=== PATIENT | male | born 1930 | race Caucasian/White ===

== ENCOUNTER → 2016-12-14 | Outpatient (CLI) | payer OTHER ==
[~2016-12-14] VITALS: Ht 185.4 cm; Wt 91.2 kg
[~2016-12-14] MED LIST: ACETAMINOPHEN325 M1 PO; ADULT LOW DOSE81 MG PO; ARMOUR THYROID60 M1 PO; DOXYCYCLINE 10100 MG PO; HYDROCHLOROTH12.5 MG PO; K-DUR 20 MEQ T20 MEQ PO; LEVOTHYROXIN0.075 MG PO; LIPITOR10 MG PO; LISINOPRIL20 MG PO; MELOXICAM7.5 MG PO; MOBIC7.5 MG PO; NEURONTIN 300300 M1 PO; NORVASC2.5 MG PO; OMEGA 3-6-9 CO1 EACH PO; ONE DAILY HEAL1 EACH PO; OXYBUTYNIN 5 MG5 M1 PO; PERCOCET PO; SIMVASTATIN40 MG PO; TRAMADOL 50 MG50 MG PO; XALATAN2.5 M1 OP; ZANTAC 7575 MG PO
--- NOTE | ~2016-12-14 | P ---
[facility] [place] [address] PROCEDURE REPORT Name: KRISTI CHE Room #: [facility] [id number] Admission: 12/14/16 Attend Phys: Nilton Gross DO Discharge: Date of : 32 Report #: [id number] THIS REPORT FOR: //name// CC: Marcin Gross DATE OF SERVICE: 12/14/2016 DESCRIPTION OF PROCEDURE: L5-S1 interlaminar epidural steroid injection under fluoroscopic guidance. This is the first procedure of the first series that the patient is undergoing. After obtaining written consent, the patient was taken back to the fluoroscopy suite, placed in a prone position with pillow under the abdomen to decrease lumbar lordosis. The skin overlying the lumbosacral area was then prepped and draped in aseptic fashion. The L5-S1 vertebral interspace was then identified by AP fluoroscopy. The skin and subcutaneous tissue overlying the target site of injection was anesthetized with 3 mL 1% lidocaine. A 20-guage 3.5 inch Tuohy needle was then advanced under fluoroscopic guidance towards the epidural space using a midline approach. The epidural space was identified using loss of resistance to air technique. After negative aspiration for heme or cerebrospinal fluid, a total of 1 mL of Omnipaque was injected. A lumbar epidurogram was confirmed using both AP and lateral fluoroscopy. After negative aspiration for heme or cerebrospinal fluid, 5 mL of a solution containing 2 mL 40 mg per mL, 80 mg total triamcinolone, 3 mL lidocaine 1% was injected in increments. Contrast spread was noted posterior epidural space. The needle was then retracted approximately half way and needle tract flushed with 1 mL of 1% lidocaine. Needle was then removed. There were no apparent sensory or motor deficits in the lower extremity following the procedure. A sterile bandage was placed over the injection site. The heart rate, pulse, oximetry and blood pressure were continuously monitored after the procedure. There were no apparent complications. The patient tolerated the procedure well and was carefully escorted to the recovery room in stable condition. There were no apparent complications. After meeting discharge criteria, the patient was then discharged home. <ELECTRONICALLY SIGNED> By: Nilton Gross DO 12/20/16 0805 [id number] Nilton Gross DO /nt
--- NOTE | ~2016-12-14 | HPC ---
[facility] [place] [address] PAIN MANAGEMENT CONSULTATION Name: KRISTI CHE Room #: REG [facility]ITAL[facility]ftali.#: [id number] Admission: 12/14/16 Attend Phys: Nilton Gross DO Discharge: Date of : 32 Report #: [id number] THIS REPORT FOR: //name// CC: Marcin Gross DATE OF SERVICE: 12/14/2016 REFERRING PHYSICIAN: Dr. Glass. CHIEF COMPLAINT: Bilateral foot pain. HISTORY OF PRESENT ILLNESS: As you know, the patient is an 86-year-old male who has been referred to our service for bilateral foot pain. The patient indicates pain began on 06/02/2016. He denies low back pain, lower extremity pain except for the bases of the feet. He has been evaluated by various physicians, the most recent was orthopedics who indicated there is a possibility the patient is suffering from atypical lumbar radiculopathy secondary to moderate spinal stenosis. He has been referred to our clinic to trial an epidural injection to determine if his bilateral foot pain can be improved with this type of procedure. He indicates today pain is continuous, steady and rhythmic, describes the pain as burning, throbbing and tender, places current pain score 7/10, daily average is 7/10, worst pain has been 9/10. The patient states that standing and walking exacerbates symptoms, elevation of his legs improves pain. He is yet to undergo any vascular studies or EMG of the lower extremities to further evaluate. Only imaging has been completed and it did show some moderate stenosis of the lumbar spine and there was concern his symptoms may be related to this. PAST MEDICAL HISTORY: 1. History of bleeding stomach ulcers. 2. Degenerative joint disease. 3. Osteoarthritis. 4. Prostate cancer, status post prostatectomy. 5. Seasonal allergies. 6. Dyslipidemia. 7. Hypothyroidism. PAST SURGICAL HISTORY: 1. Prostatectomy. 2. Left foot surgery. 3. Right foot surgery. SOCIAL HISTORY: The patient denies tobacco, alcohol, IV or illicit drug use. 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 He is [facility] [address] [place] [address] PAIN MANAGEMENT CONSULTATION Name: CHEKRISTIAILEEN SO Room #: REG [facility]#: [id number] Admission: 12/14/16 Attend Phys: Nilton Gross DO Discharge: Date of : 32 Report #: [id number] denying any workmen's compensation or litigation in regards to pain. REVIEW OF SYSTEMS: Positive for wearing corrective eyewear, cataracts, weakness, frequent urination, nocturia, incontinence and dribbling to urine, sexual difficulty, bilateral foot numbness and tingling, tremors, bleeding and bruising tendencies, dyslipidemia, hypertension, peptic ulcer disease. All other review of systems negative per 12-point review of systems other than those listed in history of present illness. Pain impact score 28/70 indicating moderate interference of daily activities secondary to pain. ALLERGIES: SULFA. CURRENT MEDICATIONS: Hydrochlorothiazide 12.5 mg once a day, oxybutynin 5 mg twice a day, Zantac 75 mg twice a day, multivitamin 1 tab per day, Norvasc 2.5 mg once a day, atorvastatin 10 mg per day, latanoprost one drop each eye per day, levothyroxine 16 mcg per day. IMAGING: MRI of the lumbar spine obtained on 11/26/2016 shows L1-L2 unremarkable. L2-L3 anterior and lateral disk bulge, mild facet arthropathy, no significant neural foraminal stenosis or central canal stenosis. L3-L4, no central canal stenosis, [id number] foraminal stenosis bilaterally. L5-S1 anterolisthesis L4 on L5, marked facet arthropathy, small joint effusions, ligamentous flavum hypertrophy, thecal sac is measuring 1 cm, mild central canal stenosis. L5-S1, marked facet arthropathy, joint effusions, neural foraminal stenosis is not noted, thecal sac measures 1.1, mild spinal stenosis. PHYSICAL EXAMINATION: VITAL SIGNS: Blood pressure 145/93, pulse 74, respiratory rate 18, unlabored. The patient is 98% on room air. Height 6 feet 1 inch tall, weight 201 pounds, BMI calculated 26.5. GENERAL: Well-developed, well-nourished, well-hydrated 86-year-old male appearing his stated age. Pain is rated at 7/10. HEENT: Normocephalic, atraumatic. Pupils equal, round, reactive to light. Extraocular muscles are intact. Sclerae nonicteric without injection. NEUROLOGIC: Cranial nerves 2-12 grossly intact. Speech is fluent. LUNGS: Clear, no wheeze, rhonchi or rales. CARDIOVASCULAR: Regular. No appreciable gallop or rub. ABDOMEN: Soft, nontender, nondistended, normoactive bowel sounds. EXTREMITIES: Show no clubbing, no cyanosis, no edema. MUSCULOSKELETAL: Lower extremity strength appears equal and symmetrical 5/5, intact to light touch from L1 through S2 dermatomes. There are changes in the tactile sensation along the plantar surface of the foot when compared to dorsum. Sensation could be due to skin thickness. There are no changes in skin color or texture, no growth changes of the nails or hair. The patient does have a [address] [place] [address] PAIN MANAGEMENT CONSULTATION Name: KRISTI CHE Room #: REG [facility]#: [id number] Admission: 12/14/16 Attend Phys: Nilton Gross DO Discharge: Date of : 32 Report #: [id number] slightly antalgic gait, but is able to stand without complication. Pain is generated with standing from seated position. Seated straight leg raising negative. Supine straight leg raising negative. Nick's test negative. Modified Gaenslen's positive for some axial low back pain. ASSESSMENT: 1. Peripheral neuropathy. 2. Bilateral foot pain. 3. Concern of mild spinal stenosis. 4. 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 5. Lumbosacral spondylosis with possible radiculopathy. 6. Intractable pain. PLAN: Based on today's physical exam, history the patient has provided, the distribution of symptoms and the fact that he is only experiencing bilateral plantar foot pain, I am not convinced that this is a spinal stenosis issue. The stenosis the patient has at L4-L5 and L5-S1 is surprisingly mild, the canal is only measuring 1 cm at its tightest spot and this is at the L4-L5 level, which is significantly more open than we typically see in 86-year-old patients. I am not at all concerned about the stenosis in this area. The neural foraminal stenosis that is noted does not correlate to the patient's current pain distribution and I do not feel is contributing significantly. The patient has been requested to undergo an epidural injection to determine if his bilateral foot pain will be improved with this. I have advised the patient that I would look for options other than the epidural injection if it is ineffective. I would recommend further workup with EMG and a possible study for peripheral arterial disease. The sources of peripheral neuropathic pain are varied, I do not feel that his stenosis is the source, but we will try to answer the referring physicians question about whether or not there is a possible component. He was referred to us by his neurology team, Dr. Tad Gilbert, for this epidural injection. We have consented the patient to undergo the procedure in hopes of improving pain, but I have advised the patient that we are not supremely confident that this is the source of the patient's current symptoms. He states he understands, but does wish to answer Dr. Gilbert's question before moving forward with more aggressive evaluation. The patient was advised risks and benefits of a lumbar epidural injection. These risks include but are not necessarily limited to bleeding, bruising, infection, worsening pain, no relief of pain, also risk of temporary or permanent muscle weakness, temporary or permanent nerve damage, possible paralysis and . The patient states understood and wished to proceed. 1. No medication changes were made at today's visit. The patient to continue current medical therapy as previously prescribed. 2. The patient to return to our clinic on an as-needed basis for possible repeat epidural injection, assuming he gets good and prolonged efficacy. Otherwise, he will follow up with his neurology team with Dr. Gilbert. [address] [address] PAIN MANAGEMENT CONSULTATION Name: KRISTI CHE SARAY Room #: REG [facility] [id number] Admission: 12/14/16 Attend Phys: Nilton Gross DO Discharge: Date of : 32 Report #: [id number] 3. We wish to thank Dr. Gilbert for the referral of this patient to our clinic. We will keep you apprised of response to treatment, as we see him for his peripheral neuropathic pain. <ELECTRONICALLY SIGNED> By: Nilton Gross DO 12/20/16 0805 [id number] 1324 Nilton Gross DO /nt
[2016-12-14 12:57] VITALS: BP 145/93
== END ==
LOC: PAIN 07:16
DX: M47.817 Spondylosis without myelopathy or radiculopathy, lumbosacral region (principal); M51.26 Other intervertebral disc displacement, lumbar region; G62.89 Other specified polyneuropathies; M19.90 Unspecified osteoarthritis, unspecified site; E78.4 Other hyperlipidemia; E03.8 Other specified hypothyroidism; Z90.79 Acquired absence of other genital organ(s); Z88.8 Allergy status to other drugs, medicaments and biological substances; H40.89 Other specified glaucoma

== ENCOUNTER → 2016-12-21 | Outpatient (CLI) | payer OTHER ==
[~2016-12-21] VITALS: Ht 185.4 cm; Wt 97.7 kg
--- NOTE | ~2016-12-21 | HPC ---
[facility] [place] [address] PAIN MANAGEMENT CONSULTATION Name: KRISTI CHE Room #: REG [facility]#: [id number] Admission: 12/21/16 Attend Phys: Nilton Gross DO Discharge: Date of : 32 Report #: [id number] THIS REPORT FOR: //name// CC: Devonte Gross DATE OF SERVICE: 12/21/2016 REFERRING PHYSICIAN: Devonte Glass M.D. CHIEF COMPLAINT: Bilateral foot pain, right greater than left. HISTORY OF PRESENT ILLNESS: As you know, the patient is a very pleasant 86-year-old male who returns today in followup visit indicating burning, throbbing, aching and tender sensations in his bilateral feet. This started in June 2016 after having "major foot surgery." He indicates his pain level of 7/10, states his pain is exacerbated with standing and walking and improves with sitting and rest. He returns today in followup visit indicating that medications are not providing much in the way of benefit despite the fact that we started the patient on tramadol and meloxicam for baseline pain control. He returns today to discuss other treatment options. ALLERGIES: SULFA. CURRENT MEDICATIONS: [place] Thyroid 60 mg per day, latanoprost one drop each eye per day, atorvastatin 10 mg per day, amlodipine 2.5 mg once a day, multivitamin 1 tab per day, ranitidine 75 mg twice a day, oxybutynin 5 mg twice a day and hydrochlorothiazide 12.5 mg once a day. SOCIAL HISTORY: The patient denies tobacco, alcohol or IV or illicit drug use. He is retired, retired years ago, unaccompanied. REVIEW OF SYSTEMS: Positive for bilateral foot pain, right ankle pain. All other review of systems negative per 12-point review of systems. IMAGING DATA: No new imaging available. PHYSICAL EXAMINATION: VITAL SIGNS: Blood pressure 160/80, pulse is 53 and respiratory rate 16 and unlabored. The patient is 100% on room air, height 6 feet 1 inch tall, weight 215.4 pounds and BMI calculated 28.4. GENERAL: Well developed, well nourished, well hydrated 86-year-old male appearing his stated age. Pain is rated around 7/10. HEENT: Normocephalic and atraumatic. Pupils equal, round and reactive to light. Extraocular muscles are intact. Sclerae nonicteric, without injection. [facility] [address] [place] [address] PAIN MANAGEMENT CONSULTATION Name: KRISTI CHE Room #: REG [facility]#: [id number] Admission: 12/21/16 Attend Phys: Nilton Gross DO Discharge: Date of : 32 Report #: [id number] EXTREMITIES: Show no clubbing, no cyanosis and no edema. MUSCULOSKELETAL: Lower extremity strength appears equal and symmetrical 5/5. There is no tenderness to palpation over the ankle today and ligamentous structures are normal. There is no erythema, no edema and no changes in skin color or texture. Normal temperatures when comparing left lower extremity to right. Weightbearing does not appear to exacerbate symptoms. Full range of motion of the ankle. No crepitus noted. ASSESSMENT: 1. Bilateral peripheral neuropathy of the feet. 2. Right foot pain. 3. Chronic intractable pain. PLAN: 1. The patient returns today in followup visit where he is now describing bilateral foot pain and burning in sensation. This appears to be a peripheral neuropathic problem. He correlates this to surgical issues. Though I am unable to determine a source of the symptomology, there is a differential that includes peripheral neuropathic pain of unknown origin, possibility of bilateral CRPS, which would be extremely rare vascular issues leading to peripheral neuropathic pain and possible lumbar spinal stenosis. After a discussion of the potential causes of his symptoms, we discussed options for treatment. These options would include physical therapy, stretching exercises. We discussed medication management with a neuropathic pain medication to help with a peripheral neuropathy. We discussed spinal cord stimulator therapy and possible surgical options if necessary. The patient at this time wishes to try more conservative treatment and is interested in medication management. 2. The patient will be started on gabapentin 300 mg dose at night one hour before bedtime. He will begin that medication immediately escalating dose every 5 nights to reach 3 tablets at night and then adding 1 in the morning and 3 at night. He was given #120 tablets, advised during the titration if he notes improvement in symptoms, stabilize at that dose, no further escalation. No improvement in symptoms and no side effects, continue the titration as directed. I did advise the patient this is the first initial dosing, we may need to adjust these medications further. He was given #120 tablets, no refills. 3. Did provide the patient with information about spinal cord stimulator today. This could be useful in controlling his neuropathic bilateral foot pain. He will consider this option and if he is considering it, we will move forward with the trial implant. 4. We have recommended the patient return to see his primary referring physicians. We wished them to further evaluate the patient and possibly have the patient be evaluated by neurology with EMG. By: [id number] Nilton Gross DO /nt
[2016-12-21 10:16] VITALS: BP 160/80
== END | disposition home or self-care (01) ==
LOC: PAIN 07:18
DX: G62.9 Polyneuropathy, unspecified (principal); G89.29 Other chronic pain; Z88.8 Allergy status to other drugs, medicaments and biological substances

== ENCOUNTER → 2017-01-18 | Outpatient (CLI) | payer OTHER ==
[~2017-01-18] VITALS: Ht 185.4 cm; Wt 96.6 kg
[~2017-01-18] MED LIST changes: +NEURONTIN100 MG PO
--- NOTE | ~2017-01-18 | HPC ---
[facility] [place] [address] PAIN MANAGEMENT CONSULTATION Name: KRSITI CHE Room #: REG [facility] [id number] Admission: 01/18/17 Attend Phys: Nilton Gross DO Discharge: Date of : 32 Report #: [id number] THIS REPORT FOR: //name// CC: Devonte Gross DATE OF SERVICE: 01/18/2017 REFERRING PHYSICIAN: Devonte Glass MD CHIEF COMPLAINT: Bilateral foot pain, right greater than left. HISTORY OF PRESENT ILLNESS: As you know, the patient is a very pleasant 86-year-old male who returns today in followup visit indicating good efficacy with gabapentin therapy. He has had a 70% improvement in overall pain with the Gabapentin 300 mg at night. He attempted to escalate to 600 mg, had near complete resolution of symptoms, but states he was somewhat "goofy" in the morning for about an hour. He returns today in followup visit to adjust medications in hopes of improving neuropathic pain and reducing side effects. He has had no change in his medical history since our last visit. ALLERGIES: SULFA. CURRENT MEDICATIONS: [place] Thyroid 60 mg once a day, latanoprost one drop each eye per day, atorvastatin 10 mg per day, amlodipine 2.5 mg once a day, multivitamin 1 tab per day, ranitidine 75 mg twice a day, oxybutynin 5 mg twice a day, and hydrochlorothiazide 12.5 mg once a day. SOCIAL HISTORY: The patient denies tobacco, alcohol, IV or illicit drug use. He is retired, retired years ago, unaccompanied. IMAGING: No new imaging available. PHYSICAL EXAMINATION: VITAL SIGNS: Blood pressure 146/86, pulse 81, respiratory rate 16 and unlabored, the patient is 98% on room air, height 6 feet 1 inches tall, weight 213 pounds, and BMI calculated 28.1. GENERAL: Well-developed, well-nourished, well-hydrated 86-year-old male, he appears stated age, pain is rated today 2/10. HEENT: Normocephalic, atraumatic. Pupils are equal, round, and reactive to light. Extraocular muscles are intact. EXTREMITIES: Show no clubbing, no cyanosis, and no edema. MUSCULOSKELETAL: Lower extremity strength appears equal and symmetrical again today 5/5, no erythema, no edema or skin color changes in the lower extremities [address] [address] PAIN MANAGEMENT CONSULTATION Name: KRISTI CHE Room #: REG [facility]#: [id number] Admission: 01/18/17 Attend Phys: Nilton Gross DO Discharge: Date of : 32 Report #: [id number] bilaterally. Normal temperature ranges. Weightbearing is normal. ASSESSMENT: 1. Bilateral peripheral neuropathy of the feet. 2. Chronic intractable pain. PLAN: 1. The patient has returned today in followup visit indicating 70% improvement in overall pain with gabapentin 300 mg dose at night. He indicates good efficacy, no side effects at 300 mg, he attempted to escalate the dose to try to gain control of this residual 30% pain, he did receive almost 100% improvement in overall pain with the 600 mg tablet, but did note some side effects of dysphoria and some somnolence in the daytime hours, lasting for about an hour. We discussed with the patient that adjustments in medication could be made in hopes of providing similar efficacy and less side effects. The following adjustments were suggested. 2. The patient will reduce his dose back down to 400 mg at night, we will be giving him a 100 mg tablet with his current 300 mg and he will continue this for 7 nights, determine if improvement is noted at 400 mg with less side effects. If no significant improvement and no side effects, he can increase to 500 or 200 mg tablets and one 300 mg tablet for 7 days. If this is effective for treatment, he will contact our clinic. If no improvement in symptoms and no side effects, he could then increase back to the 600 mg tablet. We did advise the patient if he wished he can remain at 600 mg taking the medication one hour earlier at night and this would reduce his daytime somnolence that last for an hour in the morning. He is requested that we provide the 100 mg tablets and will slowly step the patient up to a more efficacious level of medication with hopeful less side effects. 3. The patient was provided a prescription of gabapentin 100 mg tablets, I have given the patient #180, he will be adding this to his preexisting 300 mg tablets as directed above. Once he stabilizes on the dose, he will contact our clinic, so that we can provide him with the fewest amount of medications to take in the evening hours, but with hopeful improvement in his neuropathic pain. I am pleased to see the patient has done well with medication, we will make adjustments as necessary, he will contact us to advise us of the dosing that works best for him. 4. We will see the patient back in followup visit on an as needed basis. We will make adjustments in his medications via telephone conversation and call in to his local pharmacy. By: [phone] Nilton Gross, /nt
[2017-01-18 09:13] VITALS: BP 146/86
== END | disposition home or self-care (01) ==
LOC: PAIN 06:44
DX: Z76.0 Encounter for issue of repeat prescription (principal); G89.29 Other chronic pain; M25.571 Pain in right ankle and joints of right foot; M25.572 Pain in left ankle and joints of left foot; Z88.2 Allergy status to sulfonamides; Z79.899 Other long term (current) drug therapy

== ENCOUNTER → 2019-05-29 | Outpatient (CLI) | payer OTHER | LOC: SJCVC 13:32 | DX: R94.31 Abnormal electrocardiogram [ECG] [EKG] (principal); I65.23 Occlusion and stenosis of bilateral carotid arteries; E78.5 Hyperlipidemia, unspecified; I12.9 Hypertensive chronic kidney disease with stage 1 through stage 4 chronic kidney disease, or unspecified chronic kidney disease; N18.9 Chronic kidney disease, unspecified; K21.9 Gastro-esophageal reflux disease without esophagitis; Z90.49 Acquired absence of other specified parts of digestive tract; Z79.899 Other long term (current) drug therapy ==

== ENCOUNTER → 2019-11-28 | Outpatient (CLI) | payer OTHER | LOC: SJCVCIMAG 09:13 | PROVIDERS: ATTEND Internal Medicine | DX: I65.23 Occlusion and stenosis of bilateral carotid arteries (principal); I49.3 Ventricular premature depolarization; E78.5 Hyperlipidemia, unspecified; I12.9 Hypertensive chronic kidney disease with stage 1 through stage 4 chronic kidney disease, or unspecified chronic kidney disease; N18.9 Chronic kidney disease, unspecified; Z79.899 Other long term (current) drug therapy ==